=== PATIENT | female | born 1995 | race Caucasian/White ===

== ENCOUNTER 2018-02-15 14:03 | Emergency (ER) | payer BC ==
[~2018-02-15] VITALS: Ht 162.6 cm; Wt 65.8 kg
[2018-02-15] MEDS ORDERED: SERTRALINE HCL100 MG PO (15:29)
[2018-02-15] MEDS ORDERED: NUVARING VAGIN1 EACH VAG (15:30)
[2018-02-15 15:39] LABS: BASOPHILS 0.3 % (0.0-2.0); HEMATOCRIT 36.5 % (37.0-47.0); HEMOGLOBIN 12.1 gm/dL (12.0-15.0); LYMPHOCYTES 10.8 % (24.0-44.0); MCH 25.9 pg (26.0-34.0); MCHC 33.2 g/dL (28.0-37.0); MCV 77.9 fL (80.0-100.0); MONOCYTES 10.1 % (1.0-8.0); PLATELET COUNT 275 thou/uL (150-400); POLYS 78.8 % (36.0-66.0); RBC 4.68 mil/uL (4.20-5.00)
[2018-02-15 15:58] LABS: CALCIUM 8.8 mg/dL (8.5-10.1); CREATININE 0.8 mg/dL (0.6-1.0); POTASSIUM 3.7 mmol/L (3.5-5.1)
[2018-02-15] MEDS ORDERED: HYDROCODONE-ACE15 ML PO (16:42)
== END 2018-02-15 17:36 | disposition home or self-care (01) ==
LOC: ER 14:03
PROVIDERS: Physician Assistant
DX: J02.0 Streptococcal pharyngitis (principal)

== ENCOUNTER 2018-02-19 11:20 | Inpatient (IN) | payer BC ==
[~2018-02-19] VITALS: Ht 162.6 cm; Wt 65.8 kg
--- NOTE | ~2018-02-19 | HC ---
[facility] [place] [address] CONSULTATION Name: JAZIEL OLIVA Room #: 432-P ADM IN M.R.#: [id number] Admission: 02/19/18 Attend Phys: Woodrow Sarah MD Discharge: Date of : 89 Report #: [id number] THIS REPORT FOR: //name// CC: Sakina Sarah DATE OF SERVICE: 02/19/2018 Dictating consultation note for Dr. Sarah as well as Dr. Landry. REASON FOR CONSULTATION: Tonsillitis/sore throat. HISTORY OF PRESENT ILLNESS: The patient is a 22-year-old female who is known to our consultation service from recent involvement. About a week ago, she began experiencing odynophagia. She presented to a [facility] where she had a rapid and a 3-day strep test, which was negative. She was told to not take any medication. She then stopped by her PCP office on last Monday, had a fingerstick negative for mononucleosis and was given prednisone and Medrol Dosepak. She was not progressing. She presented to [facility] on 02/15/2018. At that time, she was found to be mildly febrile, somewhat tachycardic. She is noted to have 3+ bilateral tonsil enlargement with exudate at the midline uvula. She had some mild left-sided lymphadenopathy. She had electrolytes which were unremarkable, a slightly elevated white count at 14,000. Not noted at that time of any atypical lymphocytes. Rapid Strep test was found to be negative. She had a CT scan at that time, which did not show any sign of cellulitis, inflammation or abscess. She was given a GI cocktail, Toradol, IV fluids and a shot of Bicillin. She was discharged to home with Lortab elixir. She followed up in my clinic the next day, at which time, the examination was essentially unchanged. Due to my concerns for necrotizing tonsillitis, I placed her on a more appropriate weight dose of oral prednisone and switched her to clindamycin 600 mg t.i.d. and recommended pushing fluid intake. Evidently over the weekend, she ran out of her narcotic pain medication, did not contact anybody, but switched herself to oral ibuprofen. As would be expected, the poor pain control lead to increased difficulty with oral intake, which led to more dehydration, symptoms of tachycardia, difficulty swallowing liquids. However, as a result, the patient presented to Emergency Room this afternoon. She denied any recent fevers, chills, nausea, vomiting, headache, otalgia, difficulty opening her mouth. Examination in the ER today demonstrated her to be afebrile with some tachycardia. She had a normal pulse oximetry reading. Examination was essentially unchanged in the Emergency Department. Electrolytes did show an elevated BUN from previous evaluation, CBC 13,500. No evidence of any atypical lymphocytes noted on manual. As a result, it was recommended she be admitted for hydration. She was given IV fluids, IV steroids while in the Emergency Department. I was asked to see her for concerns about possible airway compromise, although she has no stridor or stertor and has no shortness of breath. [address] [address] CONSULTATION Name: JAZIEL OLIVA Room #: 432-P [facility] IN M.R.#: [id number] Admission: 02/19/18 Attend Phys: Woodrow Sarah MD Discharge: Date of : 89 Report #: [id number] PAST MEDICAL AND SURGICAL HISTORY: Unremarkable. MEDICATIONS: As noted above. REVIEW OF SYSTEMS: Negative GI, , cardiovascular, pulmonary at this time. PHYSICAL EXAMINATION: She was seen in her hospital room, sitting in a semi-reclining position. She is alert and oriented. She was not in any respiratory distress. Her voice is gaged as normal and actually improved from when I saw her on Monday. There was no dyspnea noted. Examination of the nares was unremarkable. Oral cavity shows no trismus. She has at least 3 finger excursion. Oral cavity, mucosa is moist. Dentition is normal. Oropharynx demonstrates 3+ tonsillar enlargement with moderate shaggy white exudates present bilaterally. It should be noted that the uvula is midline without uvular edema. The soft palate is unremarkable without any palate edema or erythema. Palate is soft to palpation on both sides. The pharynx appears unremarkable. There are no posterior pharyngeal wall exudates present. Bilateral shotty high ENDER adenopathy is present which is tender bilaterally. ASSESSMENT: Acute tonsillitis with tonsillar enlargement. RECOMMENDATIONS: 1. I do not see any evidence of airway compromise and per the patient, she has improved dramatically with the administration of IV fluids and hydration and since being in the Emergency Room approximately 4 hours ago. Would recommend continuing IV fluids for at least the next 12-20 hours. She should remain on either IV Rocephin or switched over to IV clindamycin where she could be transitioned back to her oral clindamycin for post-hospital care. I would continue with 20 mg of IV prednisone for at least every 8 hours for at least 3 total doses before switching back to oral finishing her oral steroids. 2. I would recommend obtaining an Frannie-Naranoj virus titers to exclude the possibility of active mononucleosis on top of a probable bacterial infection. 3. Oral pain medication in the form of liquid hydrocodone would be most beneficial to the patient as pill swallowing may be difficult for several days. This can be continued as an outpatient. I would avoid any anti-inflammatories if at all possible. This information was discussed with Dr. Sarah by phone. I will be available to see the patient tomorrow if needed. She can follow up in my clinic after completion of her oral medications as an outpatient. Thank you for this consultation. <ELECTRONICALLY SIGNED> By: Robert Acosta MD 02/20/18 [id number] Robert Acosta MD /nt
--- NOTE | ~2018-02-19 | HC ---
[facility] [place] [address] CONSULTATION Name: JAZIEL OLIVA Room #: 432-P ADM IN M.R.#: [id number] Admission: 02/19/18 Attend Phys: Woodrow Sarah MD Discharge: Date of : 89 Report #: [id number] THIS REPORT FOR: //name// CC: Sakina Sarah DATE OF SERVICE: 02/19/2018 REASON FOR CONSULTATION: I was asked to evaluate concerning tonsillitis. HISTORY OF PRESENT ILLNESS: The patient is a 22-year-old with a history of recurring tonsillitis since she was a youngster. She has episodes, probably twice a year. In between times, she has persistent swelling. Denies any chronic sinus disease or recurring pneumonia or bronchitis. Denies any halitosis. No dental issues. No middle ear infections. Approximately a week ago developed upper respiratory tract infection symptoms predominantly with sore throat. This persisted and she was seen in the outpatient clinic and placed on prednisone. She had low-grade fever. Monospot and group A strep testing was negative. She then presented to the Emergency Room on 02/15/2018. CT scan showed no evidence of peritonsillar abscess. Again, kept on prednisone and was referred to ENT, there she was placed on clindamycin. Despite this, continues to have swelling and this morning, had difficulty controlling her secretions. She presented to the Emergency Room, placed on Solu-Medrol and was given ceftriaxone. She is able to swallow better now. No fever, chills or sweats. No cough or sputum production. No upper chest pain. No shortness of breath. She is now able to swallow. No auditory complaints. No vertigo. No visual complaints. ALLERGIES: None. MEDICATIONS: Include sertraline, NuvaRing, clindamycin, now Solu-Medrol and ceftriaxone. PAST MEDICAL HISTORY: Unremarkable other than noted above. FAMILY HISTORY: Noncontributory. SOCIAL HISTORY: Nonsmoker, no significant alcohol intake. Lives with her mother. Works in a [employer]. Has a significant other. REVIEW OF SYSTEMS: CONSTITUTIONAL: As above. EYES: As above. HENT: As above. RESPIRATORY: As above. CARDIOVASCULAR: Negative. [facility] [address] [place] [address] CONSULTATION Name: JAZIEL OLIVA Room #: [address] [place] [address] [place] ..#: [id number] Admission: 02/19/18 Attend Phys: Woodrow Sarah MD Discharge: Date of : 89 Report #: [id number] GASTROINTESTINAL: Negative. GENITOURINARY: Negative. MUSCULOSKELETAL: Negative. NEUROLOGIC: Negative. PSYCHIATRIC: Negative. SKIN AND LYMPH: Negative. PHYSICAL EXAMINATION: GENERAL: Alert and cooperative, pleasant, appeared his stated age, no acute distress. VITAL SIGNS: Afebrile and hemodynamically stable. SKIN: Without rash. LYMPHATIC: No palpable adenopathy. HEENT: Eyes: No scleral icterus or conjunctivitis. Pupils are equal, round and reactive to light. Extraocular movements were normal. Sinuses: No sinus tenderness. Mouth: Oral mucosa unremarkable. Tonsils were swollen nearly touching with purulent exudates and exudative posterior oropharynx. NECK: Supple, with tender anterior cervical adenopathy. Thyroid normal. LUNGS: Clear. HEART: Regular, without murmur. ABDOMEN: Soft and nontender. No hepatosplenomegaly or mass. EXTREMITIES: No edema or cyanosis. NEUROLOGIC: Cranial nerves intact. Strength upper and lower extremities normal. Mood normal. LABORATORY STUDIES: Urinalysis, few wbc's and bacteria. Hemoglobin 11.7, WBC 13.5 and platelet count 321,000. Creatinine 0.9. Liver function test normal. Group A strep negative. Chest x-ray clear. IMPRESSION: 1. Chronic tonsillitis with acute exacerbation. 2. Suppurative tonsillitis. RECOMMENDATION: Continue with Unasyn and corticosteroids to decrease her inflammatory response. Obtain EBV titer as well as HIV. If improved tomorrow, we will switch to Augmentin. Once suppurative tonsillitis calms down, would then consider elective tonsillectomy. <ELECTRONICALLY SIGNED> By: Jc Garcia MD 02/20/18 [id number] Jc Garcia MD /nt
[~2018-02-19 11:20] MED LIST: HYDROCODONE-ACE15 ML PO; NUVARING VAGIN1 EACH VAG; SERTRALINE HCL100 MG PO
[2018-02-19 11:25] VITALS: BP 115/73
[2018-02-19] MEDS ORDERED: CLINDAMYCIN HC300 MG PO (11:33)
[2018-02-19 12:43] LABS: HEMATOCRIT 34.6 % (37.0-47.0); HEMOGLOBIN 11.7 gm/dL (12.0-15.0); MCH 25.9 pg (26.0-34.0); MCHC 33.8 g/dL (28.0-37.0); MCV 76.6 fL (80.0-100.0); PLATELET COUNT 321 thou/uL (150-400); RBC 4.52 mil/uL (4.20-5.00); RDW 14.5 % (10.5-14.5); WBC 13.5 thou/uL (4.0-11.0)
[2018-02-19 12:49] LABS: CREATININE 0.9 mg/dL (0.6-1.0); POTASSIUM 3.5 mmol/L (3.5-5.1)
[2018-02-19 12:55] LABS: ALBUMIN 2.6 g/dL (3.4-5.0); TOTAL BILIRUBIN 0.3 mg/dL (<0.1-1.0); TOTAL PROTEIN 7.7 g/dL (6.4-8.2)
[2018-02-19 13:11] LABS: METAMYELOCYTES 1 %; MYELOCYTES 1 %
[2018-02-19 13:12] LABS: ABSOLUTE NEUTROPHILS 9.3 thou/uL (1.4-8.2)
[2018-02-19 13:40] VITALS: BP 112/71
[2018-02-19 14:03] VITALS: BP 110/69
[2018-02-19] MEDS ORDERED: IBUPROFEN 200200 M1 PO (15:28)
[2018-02-19] MEDS ORDERED: CLEOCIN HCL150 MG (15:28)
[2018-02-19] MEDS ORDERED: PREDNISONE 10 M10 MG (15:30)
[2018-02-19] MEDS ORDERED: IBUPROFEN 600600 M1 PO (16:02)
[2018-02-19 16:04] VITALS: BP 115/68
[2018-02-19 19:30] LABS: URINE BILIRUBIN NEGATIVE (Negative); URINE BLOOD 2+ (Negative); URINE CLARITY CLEAR; URINE COLOR YELLOW; URINE GLUCOSE-RANDOM* NEGATIVE (Negative); URINE KETONES 1+ (Negative); URINE NITRITE-REFLEX NEGATIVE (Negative); URINE PROTEIN (DIPSTICK) NEGATIVE (Negative); URINE UROBILINOGEN 0.2 E.U./dl (0.2-1.0)
[2018-02-19 19:33] LABS: URINE LEUKOCYTES-REFLEX 1+ (Negative)
[2018-02-19 19:41] LABS: CASTS None Seen /LPF (None Seen); CRYSTALS None Seen /LPF (None Seen); SQUAMOUS 4-10 Moderate /LPF (0-3); URINE RBC 3-10 Few /HPF (0-2); URINE WBC-REFLEX 6-15 Few /HPF (0-5)
[2018-02-19 21:21] VITALS: BP 117/60
[2018-02-20 06:01] VITALS: BP 109/65
[2018-02-20 06:28] LABS: HEMATOCRIT 36.4 % (37.0-47.0); HEMOGLOBIN 11.8 gm/dL (12.0-15.0); MCH 25.3 pg (26.0-34.0); MCHC 32.4 g/dL (28.0-37.0); MCV 78.3 fL (80.0-100.0); RBC 4.65 mil/uL (4.20-5.00); RDW 13.9 % (10.5-14.5); WBC 13.4 thou/uL (4.0-11.0)
[2018-02-20 06:41] LABS: CALCIUM 8.2 mg/dL (8.5-10.1); CREATININE 0.7 mg/dL (0.6-1.0); POTASSIUM 3.9 mmol/L (3.5-5.1)
[2018-02-20 07:54] VITALS: BP 107/63
[2018-02-20 14:07] LABS: ANTI-EBNA <18.0 U/mL (0.0-17.9); ANTI-VCA/IgG 34.7 U/mL (0.0-17.9); ANTI-VCA/IgM <36.0 U/mL (0.0-35.9); EBV EARLY ANTIGEN <9.0 U/mL (0.0-8.9)
[2018-02-20 16:00] VITALS: BP 106/68
[2018-02-20 20:08] LABS: HIV ANTIBODY Non Reactive (Non Reactive)
[2018-02-20 20:30] VITALS: BP 103/65
[2018-02-21 04:00] VITALS: BP 104/64
[2018-02-21 10:51] VITALS: BP 112/58
[2018-02-21] MEDS ORDERED: HYDROCODONE-ACE15 ML PO (13:12)
[2018-02-21] MEDS ORDERED: PREDNISONE 10 M10 MG PO (13:12)
[2018-02-21] MEDS ORDERED: ACETAMINOPHEN325 M1 PO (13:12)
[2018-02-21] MEDS ORDERED: AUGMENTIN 875-1 EACH PO (13:12)
[2018-02-21 14:14] VITALS: BP 112/58
== END 2018-02-21 17:24 | disposition home or self-care (01) | DRG 153 ==
LOC: ER 11:20 → 4E 13:21 → EROBS 13:21 → 4E 14:05
PROVIDERS: Emergency Medicine; Hospitalist
DX: J03.90 Acute tonsillitis, unspecified (principal); E86.0 Dehydration; J35.01 Chronic tonsillitis; Z23 Encounter for immunization; Z79.899 Other long term (current) drug therapy
CPT/HCPCS: 10183; 10783